=== PATIENT | male | born 1995 | race African-American/Black ===

== ENCOUNTER → 2021-08-14 | Outpatient (CLI) | payer OTHER ==
--- NOTE | 2021-08-20 20:56 | SLEEPHOME ---
DATE: 08/14/2021 ORDERED BY: SALOME Ludwig Diagnostic home sleep testing was performed due to concern for the obstructive sleep apnea syndrome in this patient with a history of snoring. Eleven hours and 59 minutes of data were reviewed. There were 6 hours and 29 minutes marked as time in bed. During the interval marked time in bed, there were 40 respiratory events identified of 10 seconds in duration or greater for a respiratory event index of 6.2. The events were obstructive. Baseline pulse rate was 74. Pulse rate ranged 63 to 118. Baseline saturation was 95%. Saturations fell to 89% and testing was performed in both the supine and nonsupine positions. IMPRESSION: Abnormal home sleep testing with repetitive respiratory events and oxygen desaturations to 89% with a respiratory event index of 6.2 is consistent with the obstructive sleep apnea syndrome. RECOMMENDATION: The patient should be encouraged to undergo a formal sleep evaluation.
== END ==
LOC: M SLEEP HO 10:36
PROVIDERS: ATTEND Physician Assistant
DX: R06.83 Snoring (principal)

== ENCOUNTER → 2022-04-21 | Outpatient (CLI) | payer OTHER | LOC: M SLEEP 20:00 | PROVIDERS: ATTEND Physician Assistant | DX: G47.33 Obstructive sleep apnea (adult) (pediatric) (principal) ==